=== PATIENT | female | born 1975 | race Caucasian/White ===

== ENCOUNTER → 2019-05-27 | Outpatient (CLI) | payer SELFPAY ==
--- NOTE | 2019-05-26 15:45 | EMB_PTH ---
PATIENT: REE CATHERINE LOC: [facility] U#:[id number] AGE/SX: 43/F ROOM: RE05/27/[address]: Dr. Evan Avalos MD : 1975 BED: DIS: 05/27/2019 SPEC #: [id number] RECD: 05/27/19 12:27 STATUS: EARL KINDRA #: [id number] YOLANDE: 05/26/19 15:[address]: Evan Avalos DEPT: SURGICAL PATHOLOGY RECD BY: Kevan Caballero ENTERED: 05/27/19 12:28 SP TYPE: ENDOM BX/C BRIEN DR: No Primary Care Phys Tissues: Endometrium, NOS Procedures: Surgery Specimen Level IV HEADER OPERATION: Endometrial biopsy PRE-OP DIAGNOSIS: N92.0 TISSUE SUBMITTED: Endometrial biopsy MICROSCOPIC DIAGNOSIS Endometrium, biopsy: Disordered transition endometrium with focal glandular breakdown. AM:janette 05/28/19 MICROSCOPIC DESCRIPTION Slides are reviewed. GROSS DESCRIPTION Received in fixative is one container labeled with the patient's name and designated EM biopsy. The specimen consists of multiple fragments of hemorrhagic mucoid tissue that in aggregate measure 3 x 2.5 x 0.3 cm. The entire specimen is submitted in one cassette. / SJ:janette 05/27/19 TC:5 CPT: 10225
== END | disposition home or self-care (01) ==
LOC: LABSPEC 11:01
PROVIDERS: Referring Provider Obstetrics & Gynecology; Visit Provider Obstetrics & Gynecology
DX: N85.8 Other specified noninflammatory disorders of uterus (principal); N92.0 Excessive and frequent menstruation with regular cycle
CPT/HCPCS: 88305

== ENCOUNTER 2019-07-13 08:35 | Day surgery (SDC) | payer SELFPAY, OTHER ==
[2019-07-10 14:17] VITALS: BP 123/75; PULSE 59; RESP 16; TEMP 36.3; O2SAT 99; BMI 33.3
[2019-07-10 15:31] LABS: Hematocrit 30.9 % (37-47); Hemoglobin 8.7 g/dL (12.0-15.0); Mean Corp Hgb Conc 28.2 g/dL (32-36); Mean Corpuscular Hgb 22.8 pg (27.0-32.0); Mean Corpuscular Volume 81.1 fL (81-99); POSITIVE MORPHOLOGY YES; Platelet Count 395 K/mm3 (150-450); RBC Distribution Width CV 25.3 % (11.6-14.6); RBC Distribution Width SD 71.2 fl (35.1-43.9); Red Blood Count 3.81 M/mm3 (4.2-5.4); White Blood Count 5.6 K/mm3 (4.4-11.0)
[2019-07-10 15:42] LABS: International Normalized Ratio 1.1; Prothrombin Time (Protime)PT. 14.1 SECONDS (11.7-14.9)
[2019-07-10 15:43] LABS: Partial Thromboplast Time 27.5 Seconds (24.1-36.2)
[2019-07-10 15:57] LABS: Creatinine, Serum 0.74 mg/dL (0.55-1.02); EST Glomerular Filtration Rate 90 mL/min (>60); Est Glom Filt Rate - Afr Amer 108 mL/min (>60); Estimated Creatinine Clearance 99.28 ml/min
--- NOTE | 2019-07-12 19:28 | HP.PCM_ITS ---
History and Physical Date of Admission: 07/13/19 Surgical History and Physical Radha Allison, a 44 year old female 4 0 1 0 4, presents for RAVH/BS on July 13, 2019 at 10:40. -- Menorrhagia -- Heavy Bleeding which began 6 months ago. Radha claims it started gradually and has been present worsening in last couple weeks. It occurs all the time. It is located in the vagina.; It is located in the lower abdomen. Radha characterizes the quality Heavy Bleeding. Severity is moderate and very concerned; Additional comments are: Wants to discuss Hysterectomy. Additional comments are: blood runs down leg during menses and makes puddle on the ground. MEDICATIONS HISTORY: ALLERGIES: NKA Infections - Chicken pox Illnesses - no serious past illnesses Accidents - None Hospitalizations - Childbirth and see surgery Review of Systems: GENERAL - Denies fever, or chills SKIN - Denies skin changes EYES - Denies visual changes EARS - Denies difficulty hearing NOSE - Denies nasal congestion or bleeding MOUTH - Denies sore throat or difficulty swallowing NECK - Denies pain or swelling RESPIRATORY - Denies shortness of breath or wheezing CARDIOVASCULAR - Denies palpitations or chest pain GASTROINTESTINAL - Denies nausea, vomiting, diarrhea, constipation GENITOURINARY - Denies dysuria, frequency of urination, incontinence of urine MUSCULOSKELETAL - Denies joint or muscle pain NEUROLOGICAL - Denies localized numbness or weakness PSYCHIATRIC - Denies depression or anxiety ENDOCRINE - Denies heat or cold intolerance, weight loss or gain HEMATO-IMMUNOLOGIC - Denies excesive bleeding with cuts SOCIAL HISTORY: Alcohol Use - RARELY Smoking - denies use Diet - balanced Diet Lifestyle - Exercise - active Seat Belt Use - most of the time Employer - homemaker Illicit Drug Use - None Sexual Activity - single sexual partner and Residence - owns a home Spouse-Sig Other Name - Naty Allison Spouse-Sig Other Occupation - [employer] Children Name(s) - August López, Jorge Alberto Giron Control - Prior Tubal FAMILY HISTORY: Family history of None. MENSTRUAL HISTORY: LMP Known?- YesAmount/Duration - 7 days, Regularity - heavy, Frequency - 28 days, LMP - 05/01/19, Age Onset Menarche - 10 PAST PREGNANCIES: Total Pregnancies - 5; Full Term Pregnancies - 4; Premature - 0; Abortions, Ind uced - 0; Abortions, Spontaneous - 1; Ectopics - 0; Multiple Births - 0; Living Children - 4 SURGICAL HISTORY: 1. 01/29/2006 ; Evan Avalos M.D. 2. Appendectomy, 3. 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 , ; Dr. 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 , 1999 ; Dr. Rolon - Prior 6. cholecystectomy, ; Torsten Escoto PHYSICAL EXAM BP- 138/80 Sitting, Right arm, regular cuff Weight- 225.04634 lbs Height- 64 inch BMI:38.70 CONSTITUTIONAL - NAD, well nourished, and well developed SKIN - No rash, lesions, or ulcers HEENT - Normocephalic, PERRLA, EOMI NECK - No nodes, no nuchal rigidity and thyroid normal size and texture LYMPH NODES - Palpation of lymph nodes in neck and groins within normal limits LUNGS - CTA x2 without wheezes, crackles or rales CARDIAC - Regular rate and rhythm without rubs, murmurs, or gallops ABDOMEN - Without hepatosplenomegaly, distention, masses, rebound, or guarding; normal bowel sounds; no hernias EXTREMITIES - No edema or calf tenderness NEUROLOGICAL - Cranial nerves II-XII grossly intact PSYCHIATRIC - A and O to time, place, person, mood and affect External Genitial Vagina - non-tender without lesions Urethra/Urethral Meatus - non-tender Bladder - non-tender Vagina - vaginal gan are pink and moist without loss of rugae and no evidence of atropy Cervix - without cervical motion tenderness and has normal size and features without evident lesions and high in vagina Uterus - multiparous size 6 cm & wt 75-125 g Adnexa - clear without massess or tenderness ASSESSMENT/PLAN: 1. Menorrhagia EMBx benign. Plan to proceed with RAVH/BS. Discussed RBAs including possible need for laparotomy and all questions answered.
[2019-07-13] VITALS (10 sets, daily range): BP systolic 116–133; BP diastolic 51–68; PULSE 58–75; RESP 16–18; TEMP 36.3–37.1; O2SAT 99–100; BMI 33.3
[2019-07-13] MEDS: Lactated Ringers 1,000 ML 100 ML IV ×3 (07:00→14:00)
[2019-07-13 09:02] LABS: Internal QC Validated? YES +Cl - CLEAR BKGD; Pregnancy, Urine Negative Negative
--- NOTE | 2019-07-13 10:40 | HYST_PTH ---
PATIENT: REE CATHERINE LOC: [facility] [place] U#:[id number] AGE/SX: 44/F ROOM: RE07/13/[address]: Dr. Evan Avalos MD : 1975 BED: DIS: 07/14/2019 SPEC #: [id number] RECD: 07/13/19 16:41 STATUS: EARL MCLAUGHLINMike #: [id number] YOLANDE: 07/13/19 10:[address]: Evan Avalos DEPT: SURGICAL PATHOLOGY RECD BY: Vin Stratton ENTERED: 07/14/19 10:12 SP TYPE: HYSTERECT OTHR DR: Dr. Nathanael Matthews MD Tissues: Uterus, NOS Procedures: Surgery Specimen Level V HEADER OPERATION: Robotic assisted vaginal hysterectomy, bilateral salpingectomy PRE-OP DIAGNOSIS: Menorrhagia TISSUE SUBMITTED: Uterus, cervix, bilateral fallopian tubes MICROSCOPIC DIAGNOSIS Uterus, cervix, bilateral fallopian tubes, vaginal hysterectomy and bilateral salpingectomy: Cervix - mild chronic cystic cervicitis with tunnel cluster formation and squamous metaplasia. Endometrium - consistent with exogenous hormone effects. Myometrium - leiomyomas (largest measuring 2.5 cm in greatest dimension). - Focal adenomyosis. Bilateral fallopian tubes - no pathologic diagnosis. Bilateral paratubal cysts. SJ:rg 07/15/19 COMMENT Please make reference to previous specimen ([id number]) endometrium, biopsy with diagnosis of disordered transition endometrium with focal glandular breakdown. MICROSCOPIC DESCRIPTION Slides are reviewed. GROSS DESCRIPTION Received in fixative is one container labeled with the patient's name and designated uterus. The specimen consists of a morcellated uterus received in five fragments ranging in size from 2 cm to 8 cm. The smallest fragment on sectioning reveals a firm, white cut surface and grossly consistent with a leiomyoma. The fragment with the cervix measures 7 cm in length and 3.5 cm in average diameter. A distinct ectocervix is not recognized. The visible endocervical canal measures 4.5 cm in length and is grossly unremarkable. The visible endometrial cavity measures 4 x 3.5 cm. The pinkish-tamez endometrium measures up to 0.3 cm in thickness. The myometrium measures 2.5 cm in average thickness and contains multiple spherical rubbery nodules ranging in size from 0.7 to 2.5 cm. The right and left fallopian tubes are similar in appearance with average length of 6 cm and average diameter of 0.6 cm. The fimbriated ends are grossly unremarkable. Filshie clips are present and intact. The soft tissue adjacent to the right fallopian tube contains a smooth, glistening cyst measuring 0.6 cm and containing clear fluid. Armature Coil Winder sections are submitted in ten cassettes as follows: 1 - anterior cervix, 2 - posterior cervix, 3-6 - endometrium/myometrium, 7 - nodule free in container, 8 - myometrial nodules, 9 - right fallopian tube and paratubal cyst, 10 - left fallopian tube and paratubal cysts. / AM:janette 07/14/19 TC:1 CPT: 15043
[2019-07-13] MEDS: Ropivacaine 0.5% 30 ML Vial (11:15)
[2019-07-13] MEDS: Dextrose 5%-Lactated Ringers 1,000 ML 150 ML IV ×2 (16:14→22:07)
[2019-07-13] MEDS: 0.9% NaCl Peripheral Flush Adult/Peds IV ×3 (16:15→21:57)
[2019-07-13] MEDS: Ondansetron 4 MG/2 ML Vial IV (17:01)
--- NOTE | 2019-07-13 17:36 | PCM.OPRPT ---
Report of Operation Date of Procedure: 07/13/19 Pre-Operative Diagnosis: Menorrhagia, Blood Loss Anemia Post-Operative Diagnosis: Menorrhagia, Blood Loss Anemia, Uterine Fibroids, Adhesions Surgery/Procedure Performed:: Robotic Assisted Vaginal Hysterectomy, Bilateral Salpingectomy, Lysis of Adhesions Description of Surgical Findings:: 12 cm size fibroid uterus, normal-appearing right and left ovary, evidence of prior tubal ligation, dense adhesions of the uterus to the anterior abdominal wall, dense adhesions of omentum to right anterior abdominal wall. Small vagina. conche loader and unloader: Nino Denney Type of Anesthesia:: General - Endotracheal Anesthesiologist: Poonam Ortega Specimen's removed: Uterus, bilateral fallopian tubes Drains: Miguel to straight drain Estimated Blood Loss (mL): 100 cc Fluids Replaced: Crystalloid Description of Procedure: Surgeon: Evan Avalos MD, FACOG Indication: This is a 44 year old patient who has been having problems with extremely heavy menses. Endometrial biopsy was benign. Conservative measures have not been helpful. The patient has been counseled regarding the risks, benefits and alternatives of this procedure including the possibility of bleeding, infection, and injury to surrounding structures such as bowel bladder and all questions were answered. She understands that if BSO is needed that she will need to be on HRT for an indefinite period of time. Procedure: Pt taken to the operating room where, after induction of general anesthesia, the patient was prepped and draped in the usual sterile fashion and placed on a non-slip Huggy-u-vac device. Trendelenburg test was satisfactory. Bladder was drained of urine with a Miguel catheter which was left in place. Anterior cervix grasped and cervix was dilated to about 3-4 mm. Uterus sounded to 9 cms. 0-Vicryl suture was placed at the 3:00 and 9:00 position of the cervix. It should be noted that the upper portion of the vagina was extremely small and it was difficult to identify the cervix. A small [employer] Operator Uterine Manipulator was then placed in the uterus and attention was turned to the laparoscopic portion of the procedure. Ropivocaine 0.5% was injected approximately 2-3 cm superior to the umbilicus and an 8 mm robotic camera port was introduced directly with intraperitoneal placement confirmed with CO2 insufflation. 8 mm robotic side ports were introduced under direct visualization approximately 11 cm lateral and 2 cm inferior to the umbilical port. A 5 mm left upper quadrant port was introduced and airseal insufflation with CO2 was started. The above findings were noted. Robot was docked without difficulty and attention turned to the robotic portion of the procedure. Approximately 30 cc of Ropivicaine was used. Bilateral mesosalpinx were ligated with 35 tiwari bipolar coagulation to the level of the round ligament after taking down omental adhesions sharply and with cautery. The posterior aspect of the cervix was identified and then opened for about 1 cm using 25 watt monopolar cautery identifying the uterine manipulating device which had been placed vaginally. The uterus was noted to be densely adhered to the anterior abdominal wall and using sharp and blunt dissection this was taken down with some difficulty. About intermediate down the uterus that myometrium was noted to be open with the uterine manipulator visualized in the uterus. We were eventually able to dissect adhesions along the cervix sufficiently to complete progression of bites along the uterine cervix ligating each pedicle with cautery. Bladder flap was opened and divided to the level of the round ligaments using monopolar cautery. After progressive bites were then ligated on each side of the cervix with 35 tiwari bipolar cautery to the uterine arteries, the anterior vaginal mucosa was entered and cervix circumscribed with monopolar cautery. Uterus and attached tubes were removed through the vagina and pieces. Vaginal cuff was closed first with 0-Vicryl Memo stitches placed at each angle followed by closure of the mid-cuff with 0-Monocryl V-lock suture in two layers. Pelvis was copiously irrigated with saline and the right ureter was noted to peristalse. There was noted to be some oozing where the uterus had been dissected off the anterior abdominal wall and Surgicel powdered was placed to help with postoperative hemostasis. Robot was undocked and trocars were removed with as much gas as possible. Incisions were closed with 4-0 Monocryl subcuticular sutures and incisions covered with steri-strips. The patient tolerated the procedure well and was taken to the recovery room in satisfactory condition. Sponge, instruments and needle counts were all correct. There were no apparent complications of the surgery. Cefotan 2 gms IV was given prior to the procedure. Estimated Blood Loss: 50 cc Specimen to Pathology: Uterus and bilateral fallopian tubes Grafts/Implants Used: None - Complications None - Admit VTE Documentation VTE Present on Admission: Yes VTE Mechan Device Prophylaxis: SCD's VTE Pharm Prophylaxis ordered?: Yes
[2019-07-13] MEDS: Enoxaparin 30 MG/0.3 ML Syringe SC (18:34)
[2019-07-13] MEDS: Ketorolac 30 MG/ML Syringe IV (21:56)
[2019-07-14 02:34] VITALS: BP 104/52; PULSE 71; RESP 18; TEMP 37; O2SAT 99
[2019-07-14] MEDS: Ketorolac 30 MG/ML Syringe IV (03:42)
[2019-07-14] MEDS: 0.9% NaCl Peripheral Flush Adult/Peds IV (03:42)
[2019-07-14 05:58] LABS: Hematocrit 28.6 % (37-47); Hemoglobin 8.5 g/dL (12.0-15.0); Mean Corp Hgb Conc 29.7 g/dL (32-36); Mean Corpuscular Hgb 23.9 pg (27.0-32.0); Mean Corpuscular Volume 80.6 fL (81-99); Mean Platelet Vol. 9.7 fl (6.2-12.0); POSITIVE MORPHOLOGY YES; Platelet Count 362 K/mm3 (150-450); RBC Distribution Width CV 25.7 % (11.6-14.6); RBC Distribution Width SD 71.4 fl (35.1-43.9); Red Blood Count 3.55 M/mm3 (4.2-5.4); White Blood Count 11.9 K/mm3 (4.4-11.0)
[2019-07-14 06:06] LABS: Scan Indicated on CBC? Y/N YES- FLAGS NOTED
[2019-07-14 06:17] VITALS: BP 110/56; PULSE 62
[2019-07-14 06:20] LABS: Creatinine, Serum 0.77 mg/dL (0.55-1.02); EST Glomerular Filtration Rate 86 mL/min (>60); Est Glom Filt Rate - Afr Amer 103 mL/min (>60); Estimated Creatinine Clearance 95.41 ml/min
[2019-07-14 06:24] LABS: Differential Comment SCANNED
[2019-07-14 07:35] VITALS: O2SAT 97
[2019-07-14 08:18] VITALS: BP 105/52; PULSE 65; RESP 18; TEMP 37.1; O2SAT 100
[2019-07-14] MEDS: oxyCODONE 5 MG Tablet PO (08:29)
[2019-07-14] MEDS: Docusate Sodium 100 MG Capsule PO (08:30)
--- NOTE | 2019-07-14 08:38 | PCM.PN.OB ---
Subjective: Patient without complaints. Tolerating diet well. Positive flatus. Minimal vaginal bleeding. Ready to go home today. Denies orthostatic changes. - Physical Exam Vital Signs Temp Pulse Resp BP Pulse Ox 98.7 F 65 18 105/52 L 100 07/14/19 08:18 07/14/19 08:18 07/14/19 08:18 07/14/19 08:18 07/14/19 08:18 Oxygen Delivery Method Room Air Weight: 225 lb 8.526 oz Body Mass Index (BMI) 33.3 Intake and Output for Last 24 Hours 07/12/19 07/13/19 07/14/19 23:59 23:59 23:59 Intake Total 3757.5 / 3757.5 1160 / 1160 Output Total 1705 / 1705 800 / 800 Balance 2052.5 / 2052.5 360 / 360 Laboratory Tests Past 24 Hrs 07/13/19 07/14/19 07/14/19 08:50 05:32 05:32 WBC 11.9 H RBC 3.55 L Hgb 8.5 L Hct 28.6 L MCV 80.6 L MCH 23.9 L MCHC 29.7 L RDW Std Deviation 71.4 H RDW Coeff of Brandon 25.7 H Plt Count 362 MPV 9.7 Differential Comment SCANNED Creatinine 0.77 Estim Creat Clear Calc 95.41 Est GFR (MDRD) Af Amer 103 Est GFR (MDRD) Non-Af 86 Urine Test Negative Wounds are clean, dry, intact. Good urine output. Hemoglobin okay--hemoglobin was 8.7 about 5 days ago. Creatinine okay. Medical Necessity - Tobacco Use Smoking Status: Never smoker Tobacco Use: Non-smoker Assessment/Plan Doing well postoperative day #1 status post robotic assisted vaginal hysterectomy and bilateral salpingectomy. Will release to home with routine instructions. Continue iron supplement for the next 4 to 6 weeks. Follow-up in 2 weeks for an appointment.
--- NOTE | 2019-07-14 08:43 | DCINST_ITS ---
Discharge Diet: No Restrictions Discharge Activity: Return to Normal Activity, May Not Drive - while taking narcotic pain medications., May Shower May resume sexual activity in: 6-8 weeks Call your doctor if your incision/area has: Continuous Slow Oozing, Sudden Increased Bleeding, Increased Pain/ Swelling, Increased Redness, Foul Smelling Discharge Call your doctor if you observe: Fever of 101 or Higher, Inability to urinate, Inability to have a bowel movement, Using more than one pad per hour Allergies/Adverse Reactions: Allergies No Known Allergies Allergy (Verified 07/13/19 08:57) Medications to take at Discharge Iron Carbonyl [Feosol] 65 mg PO DAILYCM 07/10/19 Multivitamin [Multiple Vitamins] 1 ea PO DAILY 07/10/19 Docusate Sodium [Colace] 100 mg PO BID PRN PRN #60 cap 07/13/19 Oxycodone [Oxyir] 5 mg PO Q6H PRN PRN 7 Days #10 tab 07/13/19 The following prescriptions were given: Docusate Sodium [Colace] 100 mg PO BID PRN PRN #60 cap PRN Reason: Constipation Prescription Printed Oxycodone [Oxyir] 5 mg PO Q6H PRN PRN 7 Days #10 tab PRN Reason: Severe Pain (6-08/13) Prescription Printed Primary Care Physician: Nathanael Matthews MD [Primary Care Provider] - Test Results: Test results from this visit will be discussed in further detail at your follow- up appointment, if applicable. Please Follow Up With: Evan Avalos MD When: 2 to 3 weeks
[2019-07-14] MEDS: Ketorolac 10 MG Tablet PO (09:46)
== END 2019-07-14 10:43 | disposition home or self-care (01) ==
LOC: SDC 08:39 → AC 08:40 → MS3 10:23
PROVIDERS: Anesthesiology; Family Provider Family Medicine; PCP Family Medicine; Referring Provider Obstetrics & Gynecology; Visit Provider Obstetrics & Gynecology
PROC: 0UT90ZZ Resection of Uterus, Open Approach (ICD-10-PCS; CPT 58552; principal; 2019-07-13 10:20)
DX: D25.9 Leiomyoma of uterus, unspecified (principal); N80.0 Endometriosis of uterus; N83.8 Other noninflammatory disorders of ovary, fallopian tube and broad ligament; D64.9 Anemia, unspecified
CPT/HCPCS: 00940; 58552; S2900; 36415; 81025; 82565; 85027; 85610; 85730; 86850; 86900; 86901; 88307; J7120; A4216; J2405